=== PATIENT | male | born 1970 | race Caucasian/White ===

== ENCOUNTER 2016-12-09 15:42 | Inpatient (IN) | payer OTHER ==
[~2016-12-09] VITALS: Ht 177.8 cm; Wt 171.5 kg
[2016-12-09 15:49] VITALS: BP_SYST 158
[2016-12-09] MEDS ORDERED: NACL 0.9% 1,000 ML IV ONE (16:15)
[2016-12-09] MEDS ORDERED: MORPHINE SULFATE 10 MG/ML VIAL IVP ONE (16:15)
[2016-12-09] MEDS ORDERED: ONDANSETRON HCL 4 MG/2 ML VIAL IVP ONE (16:15)
[2016-12-09 16:42] LABS: BASOPHILS # (AUTO) 0.1 K/uL (0.0-0.2); BASOPHILS % (AUTO) 1.3 % (0.0-2.0); EOSINOPHILS # (AUTO) 0.1 K/uL (0.0-0.4); EOSINOPHILS % (AUTO) 1.3 % (0.0-4.0); HEMATOCRIT 35.9 % (36-54); HEMOGLOBIN 11.5 g/dL (14.0-18.0); LYMPHOCYTES # (AUTO) 1.1 K/uL (1.0-5.5); LYMPHOCYTES % (AUTO) 11.6 % (20.5-51.5); MEAN CORPUSCULAR HEMOGLOBIN 23 pg (27-31); MEAN CORPUSCULAR HGB CONC 32 % (32-36); MEAN CORPUSCULAR VOLUME 73 fL (79.0-98.0); MONOCYTES # (AUTO) 0.5 K/uL (0.0-1.0); MONOCYTES % (AUTO) 5.4 % (1.7-9.3); NEUTROPHILS # (AUTO) 7.5 K/uL (1.8-7.7); NEUTROPHILS % (AUTO) 80.4 % (40.0-70.0); PLATELET COUNT (AUTO) 266 K/uL (130-430); RED BLOOD CELL COUNT(AUTO) 4.91 MIL/uL (4.2-6.2); RED CELL DISTRIBUTION WIDTH 15.9 % (9.0-15.0); WHITE BLOOD COUNT (AUTO) 9.3 K/uL (4.8-10.8)
[2016-12-09 17:01] LABS: BILIRUBIN,URINE NEGATIVE (NEGATIVE); BLOOD, URINE NEGATIVE (NEGATIVE); CLARITY/URINE CLEAR (CLEAR); COLOR,URINE YELLOW (YELLOW); GLUCOSE,URINE NEGATIVE (NEGATIVE); KETONES,URINE NEGATIVE (NEGATIVE); LEUKOCYTE ESTERASE ,URINE NEGATIVE (NEGATIVE); NITRITE, URINE NEGATIVE (NEGATIVE); PH,URINE 5.5 (5.0-8.0); PROTEIN URINE 1+ (NEGATIVE)
[2016-12-09 17:26] LABS: CALCIUM 8.8 mg/dL (8.4-11.0); CREATININE 0.95 mg/dL (0.55-1.30); POTASSIUM 4.3 mmol/L (3.5-5.1)
[2016-12-09 17:30] LABS: ALBUMIN 3.8 g/dL (3.4-4.8); TOTAL BILIRUBIN 0.3 mg/dL (0.0-1.0); TOTAL PROTEIN, SERUM 7.2 g/dL (6.4-8.3)
[2016-12-09] MEDS ORDERED: GABA-529 PO (18:57)
[2016-12-09] MEDS ORDERED: ZOLP10TA2 PO (18:57)
[2016-12-09] MEDS ORDERED: ACET325T53 PO (18:57)
[2016-12-09] MEDS ORDERED: ALPR1TAB2 PO (18:57)
[2016-12-09] MEDS ORDERED: CYM30 PO (18:57)
[2016-12-09 19:25] VITALS: BP_SYST 144
[2016-12-09] MEDS ORDERED: ACETAMINOPHEN 650 MG SUPP.RECT RC PRN (20:15)
[2016-12-09] MEDS ORDERED: ENALAPRILAT DIHYDRATE 1.25 MG/ML VIAL IVP PRN (20:15)
[2016-12-09] MEDS: POTASSIUM CHLORIDE 10 MEQ in D5/0.45 NS 1,000 ML IV SCH (21:56)
[2016-12-09] MEDS: ONDANSETRON HCL 4 MG/2 ML VIAL IVP PRN (22:21)
[2016-12-09] MEDS: LORazepam 2 MG/ML VIAL IVP PRN (22:22)
[2016-12-09] MEDS: MORPHINE 4 MG/ML INJ. SYRINGE IVP PRN (22:22)
[2016-12-10 00:32] VITALS: BP_SYST 144
[2016-12-10 04:48] VITALS: BP_SYST 135
[2016-12-10] MEDS: POTASSIUM CHLORIDE 10 MEQ in D5/0.45 NS 1,000 ML IV SCH ×3 (06:10→18:46)
[2016-12-10 06:51] LABS: ALBUMIN 3.1 g/dL (3.4-4.8); BILIRUBIN,DIRECT 0.1 mg/dL (0.0-0.3); CALCIUM 8.4 mg/dL (8.4-11.0); CREATININE 1.01 mg/dL (0.55-1.30); TOTAL BILIRUBIN 0.4 mg/dL (0.0-1.0); TOTAL PROTEIN, SERUM 6.4 g/dL (6.4-8.3)
[2016-12-10 07:42] LABS: BASOPHILS % (AUTO) 0.4 % (0.0-2.0); EOSINOPHILS # (AUTO) 0.3 K/uL (0.0-0.4); EOSINOPHILS % (AUTO) 4.1 % (0.0-4.0); HEMATOCRIT 32.5 % (36-54); HEMOGLOBIN 10.3 g/dL (14.0-18.0); LYMPHOCYTES # (AUTO) 1.5 K/uL (1.0-5.5); LYMPHOCYTES % (AUTO) 22.3 % (20.5-51.5); MEAN CORPUSCULAR HEMOGLOBIN 23 pg (27-31); MEAN CORPUSCULAR HGB CONC 32 % (32-36); MEAN CORPUSCULAR VOLUME 73 fL (79.0-98.0); MONOCYTES # (AUTO) 0.7 K/uL (0.0-1.0); MONOCYTES % (AUTO) 10.1 % (1.7-9.3); NEUTROPHILS # (AUTO) 4.1 K/uL (1.8-7.7); NEUTROPHILS % (AUTO) 63.1 % (40.0-70.0); PLATELET COUNT (AUTO) 245 K/uL (130-430); RED BLOOD CELL COUNT(AUTO) 4.45 MIL/uL (4.2-6.2); RED CELL DISTRIBUTION WIDTH 15.6 % (9.0-15.0); WHITE BLOOD COUNT (AUTO) 6.6 K/uL (4.8-10.8)
[2016-12-10 08:00] VITALS: BP_SYST 138
[2016-12-10] MEDS ORDERED: KETOROLAC TROMETHAMINE 15 MG VIAL IVP ONE (12:45)
[2016-12-10] MEDS ORDERED: GASTROGRAFIN 120 ML ONE (13:00)
[2016-12-10] MEDS: LORazepam 2 MG/ML VIAL IVP PRN ×2 (14:30→23:24)
[2016-12-10 17:16] VITALS: BP_SYST 136
[2016-12-10 20:14] VITALS: BP_SYST 142
[2016-12-10 23:31] VITALS: BP_SYST 114
[2016-12-11 04:02] VITALS: BP_SYST 144
[2016-12-11] MEDS: ONDANSETRON HCL 4 MG/2 ML VIAL IVP PRN ×2 (04:12→17:33)
[2016-12-11 07:13] LABS: BASOPHILS % (AUTO) 0.5 % (0.0-2.0); EOSINOPHILS # (AUTO) 0.3 K/uL (0.0-0.4); EOSINOPHILS % (AUTO) 4.8 % (0.0-4.0); HEMATOCRIT 31.9 % (36-54); HEMOGLOBIN 10.1 g/dL (14.0-18.0); LYMPHOCYTES # (AUTO) 1.3 K/uL (1.0-5.5); LYMPHOCYTES % (AUTO) 24.7 % (20.5-51.5); MEAN CORPUSCULAR HEMOGLOBIN 24 pg (27-31); MEAN CORPUSCULAR HGB CONC 32 % (32-36); MEAN CORPUSCULAR VOLUME 74 fL (79.0-98.0); MONOCYTES # (AUTO) 0.4 K/uL (0.0-1.0); MONOCYTES % (AUTO) 6.9 % (1.7-9.3); NEUTROPHILS # (AUTO) 3.4 K/uL (1.8-7.7); NEUTROPHILS % (AUTO) 63.1 % (40.0-70.0); PLATELET COUNT (AUTO) 260 K/uL (130-430); RED BLOOD CELL COUNT(AUTO) 4.31 MIL/uL (4.2-6.2); WHITE BLOOD COUNT (AUTO) 5.4 K/uL (4.8-10.8)
[2016-12-11 07:23] LABS: ALBUMIN 3.3 g/dL (3.4-4.8); CALCIUM 8.3 mg/dL (8.4-11.0); CREATININE 0.92 mg/dL (0.55-1.30); POTASSIUM 3.7 mmol/L (3.5-5.1); TOTAL BILIRUBIN 0.4 mg/dL (0.0-1.0); TOTAL PROTEIN, SERUM 6.7 g/dL (6.4-8.3)
[2016-12-11 07:24] LABS: RED CELL DISTRIBUTION WIDTH 15.5 % (9.0-15.0)
[2016-12-11 08:00] VITALS: BP_SYST 131
[2016-12-11 12:00] VITALS: BP_SYST 153
[2016-12-11] MEDS: POTASSIUM CHLORIDE 10 MEQ in D5/0.45 NS 1,000 ML IV SCH (14:13)
[2016-12-11] MEDS: MORPHINE 4 MG/ML INJ. SYRINGE IVP PRN (17:33)
[2016-12-11 18:11] VITALS: BP_SYST 126
[2016-12-11 19:52] VITALS: BP_SYST 126
[2016-12-11 20:00] VITALS: BP_SYST 130
== END 2016-12-11 20:30 | disposition home or self-care (01) | DRG 389 ==
LOC: SED 15:42 → SMU 18:47
PROVIDERS: ADMIT Internal Medicine; ATTEND Internal Medicine
DX: K56.60 Unspecified intestinal obstruction (principal); Z68.43 Body mass index [BMI] 50.0-59.9, adult; E66.01 Morbid (severe) obesity due to excess calories; I10 Essential (primary) hypertension; F41.9 Anxiety disorder, unspecified; Z98.84 Bariatric surgery status
CPT/HCPCS: 36415; 74250-TC; 80048; 80053; 80076; 81003; 83690-TC; 84484; 85025; 87040-TC; 93005; 96361; 96374; 96375; 99285; J1885; J2060; J2270; J2405; J3480; J7030; Q9963